=== PATIENT | female | born 1970 | race Caucasian/White ===

== ENCOUNTER → 2016-09-17 | Outpatient (CLI) | payer OTHER ==
--- NOTE | 2016-09-19 13:09 | MM ---
Reason for exam: screening (asymptomatic). Last mammogram was performed 1 year and 2 months ago. History: Patient is nulliparous. Took hormonal contraceptives for 20 years beginning at age 19. Physical Findings: A clinical breast exam by your physician is recommended on an annual basis and results should be correlated with mammographic findings. MG Screening Mammo w CAD Bilateral CC and MLO view(s) were taken. Prior study comparison: July 06, 2015, bilateral MG screening mammo w CAD. March 05, 2014, bilateral MG screening mammo w CAD. There are scattered fibroglandular densities. No significant changes when compared with prior studies. ASSESSMENT: Negative, BI-RAD 1 RECOMMENDATION: Routine screening mammogram of both breasts in 1 year.
== END | disposition home or self-care (01) ==
LOC: RADMAMWWP 12:16
PROVIDERS: ATTEND Obstetrics & Gynecology
DX: Z12.31 Encounter for screening mammogram for malignant neoplasm of breast (principal)

== ENCOUNTER → 2019-11-08 | Outpatient (CLI) | payer BC ==
--- NOTE | 2019-11-11 10:57 | MM ---
Reason for exam: screening (asymptomatic). Last mammogram was performed 3 years and 2 months ago. History: Patient is nulliparous. Took hormonal contraceptives for 20 years beginning at age 19. Physical Findings: A clinical breast exam by your physician is recommended on an annual basis and results should be correlated with mammographic findings. MG 3D Screening Mammo W/Cad Bilateral CC and MLO view(s) were taken. Prior study comparison: September 17, 2016, bilateral MG screening mammo w CAD. July 06, 2015, bilateral MG screening mammo w CAD. The breast tissue is heterogeneously dense. This may lower the sensitivity of mammography. There is chronic nodularity in the left breast. No significant changes when compared with prior studies. ASSESSMENT: Incomplete: need additional imaging evaluation, BI-RAD 0 RECOMMENDATION: Ultrasound of the left breast. (palpable site) [facility] will attempt to contact patient to return for ultrasound.
== END | disposition home or self-care (01) ==
LOC: RADMAMWWP 14:28
PROVIDERS: ATTEND Internal Medicine
DX: Z12.31 Encounter for screening mammogram for malignant neoplasm of breast (principal)
CPT/HCPCS: 77063; 77067

== ENCOUNTER → 2019-11-15 | Outpatient (CLI) | payer BC ==
--- NOTE | 2019-11-15 13:32 | USB ---
Whole-body bone scan HISTORY: Left hip pain Correlation to CT 11/15/2019. Patient's MRI is unavailable for correlation.1 Patient received 23.9 mCi F-18 FDG intravenously in delayed scanning was performed through the whole body. Within the proximal metaphysis of the left femur there is a bandlike area of increased uptake noted m edially, some mild cortical thickening is seen at this level on CT. Soft tissue uptake is normal. Uptake at the lumbosacral junction likely due to degenerative change. S ome uptake in the sternoclavicular joints, shoulders, wrists, feet, knees is likely degenerative. IMPRESSION: There is abnormal uptake along the proximal left femur as described. Additional findings above.
== END | disposition home or self-care (01) ==
LOC: RADUSWWP 12:41
PROVIDERS: ATTEND Internal Medicine
DX: R92.8 Other abnormal and inconclusive findings on diagnostic imaging of breast (principal)

== ENCOUNTER → 2022-03-11 | Outpatient (CLI) | payer BC ==
--- NOTE | 2022-03-14 09:00 | MM ---
Reason for Exam: Screening (asymptomatic). Last mammogram was performed 2 year(s) and 4 month(s) ago. Patient History: Menarche at age 13. Patient has no children. Hormonal Contraceptives, starting at age 19 for 20 years. Maternal cousin had breast cancer under age 50. Maternal cousin had breast cancer under age 50. Last menstrual period: 03/08/2022 Risk Values: Lita 5 year model risk: 1.1%. NCI Lifetime model risk: 8.8%. Prior Study Comparison: 07/06/2015 Bilateral Screening Mammogram, [facility]. 09/17/2016 Bilateral Screening Mammogram, [facility]. 11/08/2019 Bilateral Screening Mammogram, [facility]. Tissue Density: The breast tissue is heterogeneously dense. This may lower the sensitivity of mammography. Findings: Analyzed By CAD. There is some focal distortion in the outer right breast on the craniocaudal projection likely summation density. Additional workup for confirmation is recommended. Overall Assessment: Incomplete: need additional imaging evaluation, BI-RAD 0 Management: Diagnostic Mammogram of the right breast. A negative mammogram report should not preclude additional follow up of suspicious palpable abnormalities. Patient should continue monthly self breast exam. A clinical breast exam by your physician is recommended on an annual basis and results should be correlated with mammographic findings. Electronically signed and approved by: Frankie Medina D.O. Radiologis
== END | disposition home or self-care (01) ==
LOC: RADMAMWWP 12:28
PROVIDERS: ATTEND Obstetrics & Gynecology Obstetrics
DX: Z12.31 Encounter for screening mammogram for malignant neoplasm of breast (principal); Z80.3 Family history of malignant neoplasm of breast
CPT/HCPCS: 77063; 77067

== ENCOUNTER → 2022-04-01 | Outpatient (CLI) | payer BC ==
--- NOTE | 2022-04-01 14:25 | MM ---
Reason for Exam: Additional evaluation requested from abnormal screening. Last screening mammogram was performed less than 1 month ago. Patient History: Menarche at age 13. Patient has no children. Hormonal Contraceptives, starting at age 19 for 20 years. Maternal cousin had breast cancer, age 22. Maternal cousin had breast cancer, age 49. Last menstrual period: 03/25/2022 Risk Values: Lita 5 year model risk: 1.1%. NCI Lifetime model risk: 8.8%. Prior Study Comparison: 09/17/2016 Bilateral Screening Mammogram, [facility]. 11/08/2019 Bilateral Screening Mammogram, [facility]. 11/15/2019 Left Diagnostic Ultrasound, [facility]. 03/11/2022 Bilateral MG 3D screening mammo w/cad, [facility]. Tissue Density: Right: The breast tissue is heterogeneously dense. This may lower the sensitivity of mammography. Findings: Analyzed By CAD. Area of concern within the right breast lateral aspect compresses out and is felt to be similar dating back to at least 2009. Overall Assessment: Benign, BI-RAD 2 Management: Screening Mammogram of the right breast in 1 year. A clinical breast exam by your physician is recommended on an annual basis and results should be correlated with mammographic findings. This exam should not preclude additional follow-up of suspicious palpable abnormalities. Results were given to the patient verbally at the time of exam. Electronically signed and approved by: Jose Armando Chavez DO
== END | disposition home or self-care (01) ==
LOC: RADMAMWWP 13:39
PROVIDERS: ATTEND Obstetrics & Gynecology Obstetrics
DX: R92.8 Other abnormal and inconclusive findings on diagnostic imaging of breast (principal); Z80.3 Family history of malignant neoplasm of breast
CPT/HCPCS: 77061; 77065

== ENCOUNTER 2023-05-05 11:39 | Day surgery (SDC) | payer MEDICAID ==
[~2023-05-05 11:39] MED LIST: LACTATED RINGERS 1,000 ML IV SCH
[2023-05-05 12:38] VITALS: RESP 16; TEMP 97.9
[2023-05-05] MEDS ORDERED: PROPOFOL 10 MG/ML 20 ML VIAL IV ONE (13:48)
--- NOTE | 2023-05-05 14:04 | P.PCN ---
Date of Procedure: 05/05/23 Procedure(s) Performed: BRIEF HISTORY: Patient is a 52-year-old pleasant white female scheduled for an elective colonoscopy as a part of screening for colon cance/positive cologuard PROCEDURE PERFORMED: Colonoscopy. PREOPERATIVE DIAGNOSIS: Screening for colon cancer/polyps cologuard. IV sedation per Anesthesia. PROCEDURE: After informed consent was obtained, the patient, was brought into the endoscopy unit. IV sedation was administered by Anesthesia under continuous monitoring. Digital rectal examination was normal. Initially the Olympus CF-160 flexible video colonoscope was then inserted in the rectum, gradually advanced into the cecum without any difficulty. Careful examination was performed as the scope was gradually being withdrawn. Ileocecal valve and the appendiceal orifice were visualized and appeared normal. Prep was excellent. Mucosa of the cecum, ascending colon, transverse colon, descending colon, sigmoid colon, and rectum appeared normal. Retroflexion was performed in the rectum and no lesions were seen. The patient tolerated the procedure well. IMPRESSION: Normal-appearing colon from rectum to cecum with no evidence of colorectal neoplasia . RECOMMENDATIONS: Findings of this examination were discussed with the patient as well as a family. She was advised to have a repeat surveillance colonoscopy in 10 years..
[2023-05-05 14:40] VITALS: BP 122/80; PULSE 85
== END 2023-05-05 15:02 | disposition home or self-care (01) ==
LOC: ORWHC2ENDO 11:39
PROVIDERS: ATTEND Internal Medicine Gastroenterology
DX: R19.5 Other fecal abnormalities (principal); K21.9 Gastro-esophageal reflux disease without esophagitis; Z86.010 Personal history of colon polyps; Z79.899 Other long term (current) drug therapy; Z88.0 Allergy status to penicillin; Z88.8 Allergy status to other drugs, medicaments and biological substances
CPT/HCPCS: 81025; 45378; J2704

== ENCOUNTER → 2024-01-25 | Outpatient (CLI) | payer MEDICAID ==
--- NOTE | 2024-01-26 08:27 | MM ---
Reason for Exam: Screening (asymptomatic). Last mammogram was performed 1 year(s) and 11 month(s) ago. Patient History: Menarche at age 13. Patient has no children. Hormonal Contraceptives, starting at age 19 for 20 years. Maternal cousin had breast cancer, age 22. Maternal cousin had breast cancer, age 49. Last menstrual period: 09/21/2023 Risk Values: Lita 5 year model risk: 1.2%. NCI Lifetime model risk: 8.5%. Prior Study Comparison: 11/08/2019 Bilateral Screening Mammogram, [facility]. 03/11/2022 Bilateral MG 3D screening mammo w/cad, [facility]. 04/01/2022 Right MG 3D work up w/cad RT, [facility]. Tissue Density: The breasts are heterogeneously dense, which may obscure small masses. Findings: Analyzed By CAD. There is no suspicious group of microcalcifications or new suspicious mass in either breast. Overall Assessment: Negative, BI-RAD 1 Management: Screening Mammogram of both breasts in 1 year. . Patient should continue monthly self-breast exams. A clinical breast exam by your physician is recommended on an annual basis. This exam should not preclude additional follow-up of suspicious palpable abnormalities. Note on Lita scores and lifetime risk: 1. A Lita score greater than 3% is considered moderate risk. If this is the case, consider specialist referral to assess eligibility for a risk reducing agent. 2. If overall lifetime risk for the development of breast cancer is 20% or higher, the patient may qualify for future screening with alternating mammogram and breast MRI. Electronically signed and approved by: Boris Carroll M.D. Radiologis
== END | disposition home or self-care (01) ==
LOC: RADMAMWWP 11:14
PROVIDERS: ATTEND Internal Medicine
DX: Z12.31 Encounter for screening mammogram for malignant neoplasm of breast
CPT/HCPCS: 77063; 77067